=== PATIENT | male | born 1970 | race Caucasian/White ===

== ENCOUNTER 2018-06-15 19:29 | Inpatient (IN) | payer OTHER ==
[~2018-06-15] VITALS: Ht 182.9 cm; Wt 95.6 kg
--- NOTE | 2018-06-16 15:25 | EKG ---
[facility] [address] [facility] [place] [address] Signed Normal sinus rhythm Incomplete right bundle branch block Borderline ECG No previous ECGs available Confirmed by ABRAM FRIAS MD ([id number] on 06/16/2018 3:25:04 PM Electronically Signed By: ABRAM FRIAS MD 06/16/18 1525 PATIENT NAME: JONI REED Electrocardiogram DATE OF : 70 PHYSICIAN: ABRAM FRIAS MD REPORT #: [id number] REPORT IS CONFIDENTIAL AND NOT TO BE RELEASED WITHOUT AUTHORIZATION
[2018-06-19] MEDS ORDERED: AUGMENTIN 875-1 EACH PO (10:17)
== END 2018-06-19 11:22 | disposition home or self-care (01) | DRG 872 ==
LOC: ED 19:29 → CCU 23:30 → MS 06-17 10:20
PROVIDERS: ADMIT Internal Medicine
DX: A41.50 Gram-negative sepsis, unspecified (principal); J40 Bronchitis, not specified as acute or chronic; D64.9 Anemia, unspecified; E83.42 Hypomagnesemia
CPT/HCPCS: 36415; 51702; 71045; 74177; 80053; 81001; 83605; 83690; 83735; 85025; 87081; 87880; 93005; 93010; 93306; 96365; 99285; J0692; J0780; J1650; J2405; J3475; J7030; J7120; Q9967